=== PATIENT | female | born 1990 | race African-American/Black ===

== ENCOUNTER 2016-07-05 05:32 | Emergency (ER) | payer MEDICAID ==
[~2016-07-05] VITALS: Ht 165.1 cm; Wt 98.9 kg
[2016-07-05] MEDS ORDERED: NKM (05:41)
[2016-07-05] MEDS ORDERED: CORTISPORIN EAR10 ML RIGHT EAR (05:55)
[2016-07-05] MEDS ORDERED: HYDROCODON-ACE1 EA15 ORAL (05:55)
--- NOTE | 2016-07-05 05:56 | Emergency Room Report ---
History of Present Illness General Chief Complaint: Earache Source: Patient Present Illness [facility] This is a 26-year-old female with no significant past medical history. She presents with right ear pain. Onset for last 2 days. No fever chills been no nausea no vomiting. Pain is 8/10. Throbbing nature. Decreased hearing. 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 Denies any recent swimming. Allergies: Coded Allergies: No Known Allergies (Unverified , 07/05/16) Patient History Past Medical History: see triage record, old chart reviewed Past Surgical History: other Pertinent Family History: none Social History: Denies: smoking Last Menstrual Period: 3 weeks ago Now: No Immunizations: other Reviewed Nursing Documentation: PMH: Agreed, PSxH: Agreed Nursing Documentation-PMH Past Medical History: No Stated History Review of Systems Eye: Denies: blurred vision, eye pain ENT: Reports: ear pain, Denies: nose congestion, throat swelling Respiratory: Denies: cough, shortness of breath Cardiovascular: Denies: chest pain, palpitations Gastrointestinal: Denies: abdominal pain, diarrhea, nausea, vomiting Musculoskeletal: Denies: back pain, joint pain Skin: Denies: rash Neurological: Denies: headache, numbness Endocrine: Denies: increased thirst, increased urine Hematologic/Lymphatic: Denies: easy bruising All Other Systems: negative except mentioned in HPI Physical Exam Vital Signs Date Time Temp Pulse Resp B/P Pulse Ox O2 Delivery O2 Flow Rate FiO2 07/05/16 05:34 98.4 86 16 123/87 100 Room Air vitals normal Sp02 EP Interpretation: reviewed, normal General Appearance: well appearing, no apparent distress, alert Head: normocephalic, atraumatic Eyes: bilateral eye EOMI, bilateral eye PERRL ENT: hearing grossly normal, normal pharynx, other - Left ear with wax. Neck: full range of motion, supple, no meningismus Respiratory: chest non-tender, lungs clear, normal breath sounds Cardiovascular #1: regular rate, rhythm, no murmur Gastrointestinal: normal bowel sounds, non tender, no mass, no organomegaly, no bruit, non-distended Musculoskeletal: back normal, gait/station normal, normal range of motion Psychiatric: mood/affect normal Skin: warm/dry Medical Decision Making Diagnostic Impression: Primary Impression: Right otitis externa Qualified Codes: H60.501 - Unspecified acute noninfective otitis externa, right ear ER Course With otitis externa. I place a wick ear canal to help with absorption of antibiotic drops. No evidence of otitis media. If not better she will need to see ENT doctor again. No evidence of mastoiditis. Last Vital Signs Date Time Temp Pulse Resp B/P Pulse Ox O2 Delivery O2 Flow Rate FiO2 07/05/16 05:34 98.4 86 16 123/87 100 Room Air Status: improved Disposition: HOME, SELF-CARE Condition: Stable Scripts Neomycin/Polymyxin B Sulf/Hc* (CORTISPORIN EAR SOLUTION*) 10 Ml Solution 4 DROP RIGHT EAR QID, #10 ML 0 Refills Prov: SPENCER ANDREW M.D. 07/05/16 Hydrocodone/Acetaminophen 5-325* (HYDROCODONE/ACETAMINOPHEN 5-325*) 1 Each Tablet 1 TAB ORAL Q6H Y for For Pain, #20 TAB 0 Refills Prov: SPENCER ANDERW M.D. 07/05/16 Patient Instructions: Otitis Externa, [id number] Additional Instructions: Followup with your DrReginald in 7 days. Return if symptom worsen. If not better he will be referred to see ear nose and throat SPENCER Vicente M.D. July 05, 2016 05:56
[2016-07-05 06:02] VITALS: BP 123/87
== END 2016-07-05 06:02 | disposition home or self-care (01) ==
LOC: EMR 06:00
DX: H60.501 Unspecified acute noninfective otitis externa, right ear (principal)
CPT/HCPCS: 99284

== ENCOUNTER 2016-07-07 13:05 | Emergency (ER) | payer MEDICAID ==
[~2016-07-07] VITALS: Ht 167.6 cm; Wt 82.1 kg
[~2016-07-07 13:05] MED LIST: CORTISPORIN EAR10 ML RIGHT EAR; HYDROCODON-ACE1 EA15 ORAL; NKM
[2016-07-07] MEDS ORDERED: CIPROFLOXACIN500 M2 ORAL (13:26)
[2016-07-07] MEDS ORDERED: CORTISPORIN EAR10 ML BOTH EARS (13:26)
[2016-07-07 13:37] VITALS: BP 100/57
[2016-07-07 14:09] VITALS: BP 100/57
--- NOTE | 2016-07-09 12:13 | Emergency Room Report ---
History of Present Illness General Chief Complaint: Earache Source: Patient Present Illness HPI The patient is a 26-year-old female presenting with right ear pain. The patient was seen in this emergency department 2 days prior for the same complaint and was diagnosed with otitis externa and given a prescription for Cortisporin. She states that she has been using as prescribed but has had no relief of pain. Pain is an 8/10 dull ache it is worse with touch. She also admits to decreased hearing of the right ear. The pain has now started in the left ear as well and this is described as a 5/10 dull ache. Pain does not radiate. She denies any other symptoms including discharge from the ears, bleeding, uterine, chills, cough, sore throat, rash, headache Allergies: Coded Allergies: No Known Allergies (Unverified , 07/05/16) Patient History Past Medical History: see triage record Pertinent Family History: none Last Menstrual Period: 06/17/16 Now: No Reviewed Nursing Documentation: PMH: Agreed, PSxH: Agreed Nursing Documentation-PMH Past Medical History: No Stated History Review of Systems All Other Systems: negative except mentioned in HPI Physical Exam Vital Signs Date Time Temp Pulse Resp B/P Pulse Ox O2 Delivery O2 Flow Rate FiO2 07/07/16 13:10 99.0 66 20 100/57 99 Room Air Sp02 EP Interpretation: reviewed, normal General Appearance: no apparent distress, alert, GCS 15, non-toxic Head: normocephalic, atraumatic Eyes: bilateral eye PERRL, bilateral eye normal inspection ENT: normal pharynx, normal voice, uvula midline, other - R EAC: significant edema and erythema with white DC. Unable to visualize the TM. Neck: full range of motion, supple/symm/no masses Respiratory: chest non-tender, lungs clear, normal breath sounds, no wheezing, speaking full sentences Neurologic: alert, oriented x3, responsive, motor strength/tone normal, sensory intact, speech normal Psychiatric: judgement/insight normal, memory normal, mood/affect normal, no suicidal/homicidal ideation Skin: normal color, no rash, warm/dry, well hydrated Lymphatic: no adenopathy Medical Decision Making PA Attestation Dr. Bunch is my supervising physician. Patient management was discussed with my supervising physician Diagnostic Impression: Primary Impression: Otitis media Qualified Codes: H66.90 - Otitis media, unspecified, unspecified ear Additional Impression: Otitis externa Qualified Codes: H60.509 - Unspecified acute noninfective otitis externa, unspecified ear ER Course The patient is a 26-year-old female presenting with right ear pain Differential diagnosis include but not limited to otitis externa, otitis media, mastoiditis, sinusitis, pharyngitis Physical exam: Vitals within normal limits. No apparent distress. HEENT: Left ear external auditory canal is erythematous and edematous. White discharge is noted. Unable to visualize the L TM. R EAC: erythema and edema. There is bulging and erythema of the TM. No perforation. There is no cervical lymphadenopathy. Otherwise exam is unremarkable The patient will be discharged home with a prescription for both Cortisporin and ciprofloxacin as the patient has signs and symptoms of otitis externa and media. ER precautions given. Patient will FU with PMD and told she may need to see ENT. Last Vital Signs Date Time Temp Pulse Resp B/P Pulse Ox O2 Delivery O2 Flow Rate FiO2 07/07/16 14:09 99.0 68 20 100/57 99 Room Air Status: improved Disposition: HOME, SELF-CARE Condition: Improved Scripts Ciprofloxacin Hcl* (CIPROFLOXACIN HCL*) 500 Mg Tablet 500 MG ORAL EVERY 12 HOURS, #20 TAB 0 Refills Prov: LIYAH ROBIN 07/07/16 Neomycin/Polymyxin B Sulf/Hc* (CORTISPORIN EAR SOLUTION*) 10 Ml Solution 4 DROP BOTH EARS QID, #10 ML 0 Refills Prov: LIYAH ROBIN.A. 07/07/16 Referrals: [facility],REFERRING (PCP) Patient Instructions: Otitis Externa, Otitis Media, Adult, Earache Additional Instructions: I discussed my findings with the patient. All questions and concerns have been answered. Treatment and medication compliance have been addressed. I advised the patient that they need to follow up with PMD in 3-5 days. Return to ED if symptoms worsen, new symptoms arise, or if needed for any reason. Patient verbalized understanding of discharge instructions. The patient was informed that she needs to follow up with ENT as soon as possible LIYAH ROBIN July 09, 2016 12:13
== END 2016-07-07 14:10 | disposition home or self-care (01) ==
LOC: EMR 13:25
DX: H66.91 Otitis media, unspecified, right ear (principal); H60.91 Unspecified otitis externa, right ear
CPT/HCPCS: 99284

== ENCOUNTER 2019-06-30 13:10 | Emergency (ER) | payer MEDICAID ==
[~2019-06-30] VITALS: Ht 165.1 cm; Wt 97.5 kg
[~2019-06-30 13:10] MED LIST changes: +CIPROFLOXACIN500 M2 ORAL; +CORTISPORIN EAR10 ML BOTH EARS
[2019-06-30 13:18] VITALS: BP 114/73
--- NOTE | 2019-06-30 13:40 | Emergency Room Report ---
History of Present Illness General Chief Complaint: Earache Source: Patient Present Illness HPI 29-year-old female with no significant past medical history here complaining of right-sided earache x2 weeks. Patient reports that she tried to wash the earwax out with water and Q-tip however has been associated tach. No pus drainage noted. Rates the pain 10 out of 10 without radiation. Denies sore throat, cough or congestion, abdominal pain, nausea or vomiting. Sitting comfortably with stable vital signs. Has not taken medication for symptom relief. Denies Allergies: Coded Allergies: No Known Allergies (Unverified , 07/05/16) COVID-19 Screening Contact w/high risk pt: No Recent Travel to affected area: No Experienced COVID-19 symptoms?: No Patient History Past Medical History: see triage record Past Surgical History: none Pertinent Family History: none Last Menstrual Period: 2weeks Now: No Immunizations: UTD Reviewed Nursing Documentation: PMH: Agreed; PSxH: Agreed Nursing Documentation-PMH Past Medical History: No History, Except For Review of Systems All Other Systems: negative except mentioned in HPI Physical Exam Vital Signs Date Time Temp Pulse Resp B/P (MAP) Pulse Ox O2 Delivery O2 Flow Rate FiO2 06/30/19 13:12 98.6 73 20 114/73 (87) 97 Room Air Sp02 EP Interpretation: reviewed, normal General Appearance: no apparent distress, alert, GCS 15, non-toxic Head: normocephalic, atraumatic Eyes: bilateral eye normal inspection, bilateral eye PERRL ENT: uvula midline, other - Right TM bulging, Neck: full range of motion, supple Respiratory: chest non-tender Cardiovascular #1: regular rate, rhythm, no edema Gastrointestinal: normal inspection Genitourinary: no CVA tenderness Musculoskeletal: back normal Neurologic: alert, motor strength/tone normal, oriented x3, sensory intact, responsive, speech normal Psychiatric: judgement/insight normal, memory normal, mood/affect normal, no suicidal/homicidal ideation Skin: no rash Lymphatic: no adenopathy Medical Decision Making PA Attestation All diagnoses and treatment plans were reviewed and discussed with my supervising physician Dr. Oscar Diagnostic Impression: Primary Impression: Otitis media ER Course 29-year-old female with no significant past medical history here complaining of right-sided earache x2 weeks. Patient reports that she tried to wash the earwax out with water and Q-tip however has been associated tach. No pus drainage noted. Rates the pain 10 out of 10 without radiation. Denies sore throat, cough or congestion, abdominal pain, nausea or vomiting. Sitting comfortably with stable vital signs. Has not taken medication for symptom relief. Denies Ddx considered but are not limited to: Otitis media, otitis externa , mastoiditis, strep pharyngitis, URI, tonsillitis, peritonsillar abscess, influneza Vital signs: are WNL, pt. is afebrile H&PE are most consistent with: Otitis Media ORDERS: Augmentin, ibuprofen ED INTERVENTIONS: None required at this time. DISCHARGE: At this time pt. is stable for d/c to home. Will provide printed patient care instructions, and any necessary prescriptions. Care plan and follow up instructions have been discussed with the patient prior to discharge. Take medication as directed, follow with primary doctor, if worsening symptoms return to emergency room Last Vital Signs Date Time Temp Pulse Resp B/P (MAP) Pulse Ox O2 Delivery O2 Flow Rate FiO2 06/30/19 13:18 98.6 76 20 114/73 97 Room Air Disposition: HOME, SELF-CARE Condition: Stable Scripts Ibuprofen (Ibu) 800 Mg Tablet 800 MG PO TID, #30 TAB Prov: Isaias Garcia 06/30/19 Amoxicillin/Potassium Clav 875-125* (AUGMENTIN 875-125 TABLET*) 1 Each Tablet 1 TAB ORAL TWICE A DAY for 10 Days, #20 TAB Prov: Isaias Garcia 06/30/19 [facility]REFERR[facility] (PCP) Patient Instructions: Otitis Media, Adult Additional Instructions: Take medication as directed, follow-up with primary doctor, avoid irritating the vaccine your ear at this time, versus symptoms return to the emergency room Isaias Garcia June 30, 2019 13:40
[2019-06-30] MEDS ORDERED: IBUPROFEN400 MG ORAL (13:42)
[2019-06-30] MEDS ORDERED: ZITHROMAX250 MG ORAL (13:42)
[2019-06-30] MEDS ORDERED: IBU800 MG PO (13:44)
[2019-06-30] MEDS ORDERED: AUGMENTIN 875-1 EAC1 ORAL (13:44)
[2019-06-30 13:45] VITALS: BP 124/75
== END 2019-06-30 13:45 | disposition home or self-care (01) ==
LOC: EMR 13:25
DX: H66.91 Otitis media, unspecified, right ear (principal)
CPT/HCPCS: 99282